=== PATIENT | male | born 1965 | race Caucasian/White ===

== ENCOUNTER → 2019-12-12 | Outpatient (CLI) | payer OTHER ==
--- NOTE | 2019-12-12 14:55 | 2DMMODE ---
[facility] [place] [address] 2 D/M-MODE ECHOCARDIOGRAM Name: CHOLO FORREST Room #: REG [facility].#: [id number] Admission: 12/12/19 Attend Phys: Billy Montes MD Discharge: Date of : 61 Report #: [id number] THIS REPORT FOR: cc: Physician not on staff Physician not on staff Gallito Falcon MD ~ APPROVED REPORT Study performed: 12/12/2019 14:20:02 EXAM: Comprehensive 2D, Doppler, and color-flow Echocardiogram Patient Location: Out-Patient Status: routine BSA: 2.22 HR: 67 bpm BP: 120/84 mmHg Rhythm: NSR Other Information Study Quality: Adequate Indications Ischemic heart disease. HLP. 2D Dimensions RVDd: 39.56 mm IVSd: 13.36 (7-11mm) LVOT Diam: 21.58 (18-24mm) LVDd: 41.98 mm PWd: 11.19 (7-11mm) Ascending Ao: 28.16 (22-36mm) LVDs: 27.13 (25-40mm) Aortic Root: 32.09 mm Volumes Left Atrial Volume (Systole) Single Plane 4CH: 55.09 mL Single Plane 2CH: 41.68 mL LA ESV Index: 24.00 mL/m2 Aortic Valve AoV Peak Abisai.: 1.73 m/s AO Peak Gr.: 12.01 mmHg LVOT Max P.57 mmHg LVOT Max V: 1.63 m/s CAMERON Vmax: 3.43 cm2 [facility] [place] [place] [address] 2 D/M-MODE ECHOCARDIOGRAM Name: CHOLO FORREST Room #: REG [facility]#: [id number] Admission: 12/12/19 Attend Phys: Billy Montes MD Discharge: Date of : 61 Report #: [id number] Mitral Valve E/A Ratio: 1.6 MV Decel. Time: 216.79 ms MV E Max Abisai.: 1.03 m/s MV A Abisai.: 0.64 m/s MV PHT: 62.87 ms IVRT: 65.74 ms Pulmonary Valve PV Peak Abisai.: 1.08 m/s PV Peak Gr.: 4.64 mmHg Pulmonary Vein P Vein S: 0.57 m/s P Vein A: 0.34 m/s P Vein D: 0.48 m/s P Vein A Dur.: 106.1 msec P Vein S/D Ratio: 1.19 Tricuspid Valve TR Peak Abisai.: 2.89 m/s RAP Estimate: 10.00 mmHg TR Peak Gr.: 33.48 mmHg PA Pressure: 43.00 mmHg Left Ventricle The left ventricle is normal size. There is normal LV segmental wall motion. Mild basal septal hypertrophy is present. Left ventricular systolic function is normal. LVEF is 60-65%. Moderate diastolic dysfunction is present. Right Ventricle The right ventricle is normal size. The right ventricular systolic function is normal. Atria The left atrium size is normal. The right atrium size is normal. Aortic Valve The aortic valve is normal in structure. No aortic regurgitation is present. There is no aortic valvular stenosis. Mitral Valve The mitral valve is normal in structure. Trace to mild mitral regurgitation. No evidence of mitral valve stenosis. Tricuspid Valve The tricuspid valve is normal in structure. Mild tricuspid regurgitation. Estimated PAP is 43mmHg. [facility] [address] [place] [address] 2 D/M-MODE ECHOCARDIOGRAM Name: CHOLO FORREST Room #: REG [facility]#: [id number] Admission: 12/12/19 Attend Phys: Billy Montes MD Discharge: Date of : 61 Report #: [id number] Pulmonic Valve The pulmonary valve is normal in structure. Trace pulmonic regurgitation. Great Vessels The aortic root is normal in size. The ascending aorta is normal in size. IVC is dilated and collapses >50% with inspiration. Pericardium There is no pericardial effusion. <Conclusion> The left ventricle is normal size. LVEF is 60-65%. The aortic valve is normal in structure. The mitral valve is normal in structure. Trace to mild mitral regurgitation. The tricuspid valve is normal in structure. Mild tricuspid regurgitation. Estimated PAP is 43mmHg. The pulmonary valve is normal in structure. Trace pulmonic regurgitation. There is no pericardial effusion. <ELECTRONICALLY SIGNED> By: Gallito Falcon MD 12/12/19 1455 [id number] Gallito Falcon MD /INF
== END ==
LOC: CV 14:10
PROVIDERS: ATTEND Orthopaedic Surgery
DX: I08.1 Rheumatic disorders of both mitral and tricuspid valves (principal); I25.9 Chronic ischemic heart disease, unspecified